=== PATIENT | male | born 1955 | race Caucasian/White ===

== ENCOUNTER 2017-11-23 03:03 | Inpatient (IN) | payer MEDICARE ==
[~2017-11-23] VITALS: Ht 177.8 cm; Wt 92.5 kg
[2017-11-23 03:12] VITALS: BP 107/65
--- NOTE | 2017-11-23 03:12 | NUR ---
GPS/RN NOTES: ADMITTED A 62-Y/O MALE FROM [facility], PATIENT CAME IN THE UNIT VIA GURNEY ACCOMPANIED BY 2 EMT'S. PATIENT ADMITTED ON 5150 HOLD FOR DTS. PER HOLD PATIENT IS NOTED TO BE LABILE, SAD, HIGHLY ANXIOUS, IRRITABLE, GRIMACING STATED HE HAS THOUGHTS OF KILLING HIMSELF. UPON FACE TO FACE ASSESSMENT PATIENT IS ALERT, ORIENTED X3, HYPERVERBAL, DISORGANIZED THOUGHTS, PATIENT DID NOT VERBALIZE SI/HI, DENIES VISUAL/AUDITORY HALLUCINATIONS AT THIS TIME. PATIENT RIGHTS WAS EXPLAINED TO HIM AND PATIENT RIGHT BOOKLET WAS GIVEN TO HIM. PATIENT WAS ORIENTED IN THE UNIT AND UNIT POLICIES. BELONGINGS WERE INVENTORIED AND CHECKED FOR CONTRABAND, SKIN ASSESSMENT DONE. PATIENT IS UNDER THE PSYCHIATRIC CARE OF DR. MARIE, ORDERS OBTAINED, AND UNDER THE MEDICAL CARE OF DR. GRAY, CALLED [facility] SPOKE TO DR. MATA AND NOTIFIED TO RECONCILE MEDICATIONS. BED LOCKED AND IN LOW POSITION, PATIENT MADE COMFORTABLE. WILL CONTINUE TO MONITOR [id number] FOR SAFETY AND BEHAVIOR. FAMILY WILL BE NOTIFIED IN AM.
[2017-11-23] MEDS ORDERED: MAGNESIUM HYDROXIDE 30 ML UDC PO PRN (04:00)
[2017-11-23] MEDS ORDERED: MAG HYDROX/AL HYDROX/SIMETH 30 ML UDC PO PRN (04:00)
[2017-11-23] MEDS ORDERED: ACETAMINOPHEN 325 MG TABLET PO PRN (04:00)
[2017-11-23] MEDS ORDERED: LORAZEPAM 0.5 MG TABLET PO PRN (04:00)
[2017-11-23] MEDS ORDERED: TEMAZEPAM 7.5 MG CAPSULE PO PRN (04:00)
[2017-11-23] MEDS ORDERED: RISP1TAB27 PO ×2 (04:05→04:45)
[2017-11-23] MEDS ORDERED: ASPI-1169 PO (04:05)
[2017-11-23] MEDS ORDERED: GLIP5TAB13 PO ×2 (04:05→04:45)
[2017-11-23] MEDS ORDERED: OMEP40CA37 PO ×2 (04:05→04:45)
[2017-11-23] MEDS ORDERED: METH20TA9 PO ×2 (04:05→04:45)
[2017-11-23] MEDS ORDERED: TERA2CAP4 PO ×2 (04:05→04:45)
[2017-11-23] MEDS ORDERED: GABA-534 PO ×2 (04:05→04:45)
[2017-11-23] MEDS ORDERED: ALBU18HF2 IH (04:05)
[2017-11-23] MEDS ORDERED: EMPA10TA PO ×2 (04:05→04:45)
[2017-11-23] MEDS ORDERED: ALLO100T PO ×2 (04:05→04:45)
[2017-11-23] MEDS ORDERED: LITH300T PO (04:05)
[2017-11-23] MEDS ORDERED: DULO60CA45 PO ×2 (04:05→04:45)
[2017-11-23] MEDS ORDERED: HYDR4TAB57 PO ×2 (04:05→04:45)
[2017-11-23] MEDS ORDERED: LISI40TA4 PO ×2 (04:05→04:45)
[2017-11-23] MEDS ORDERED: PRAV40TA3 PO ×2 (04:05→04:45)
[2017-11-23] MEDS ORDERED: MIRT45TA6 PO (04:05)
[2017-11-23] MEDS ORDERED: MULT-1119 PO (04:45)
[2017-11-23] MEDS ORDERED: LITH300T3 PO (04:45)
[2017-11-23] MEDS ORDERED: MIRT45TA5 PO (04:45)
[2017-11-23] MEDS ORDERED: ASPI-1152 PO (04:45)
[2017-11-23] MEDS ORDERED: BIOT5000 PO (04:45)
--- NOTE | 2017-11-23 06:00 | NUR ---
GPS RN NOTES: CALLED PATIENT'S MITALI POWELL, UNABLE TO REACH THE NUMBER [phone] DUE TO LONG DISTANCE CALL FROM [facility]. PHONE NUMBER WAS PROVIDED/GIVEN BY PATIENT. WILL ENDORSE TO THE NEXT SHIFT ACCORDINGLY TO MAKE A FOLLOW-UP CALL.
[2017-11-23] MEDS ORDERED: DEXTROSE 50%-WATER 50 ML DISP.SYRIN IV PRN (07:00)
[2017-11-23] MEDS: BLOOD SUGAR DIAGNOSTIC 1 EACH STRIP IN SCH ×4 (07:30→21:25)
[2017-11-23 08:01] VITALS: BP 169/90
--- NOTE | 2017-11-23 11:03 | NUR ---
GPS/RN PT REFUSED TO TAKE TYLENOL OFFERED FOR PAIN.
[2017-11-23] MEDS: LISINOPRIL (20MG) 20 MG TABLET PO SCH (12:28)
[2017-11-23] MEDS: risperiDONE 1 MG TABLET PO SCH ×2 (12:28→16:49)
[2017-11-23] MEDS: HYDROMORPHONE HCL 2 MG TABLET PO SCH ×3 (12:28→20:33)
--- NOTE | 2017-11-23 12:44 | NUR ---
GPS/RN PT REFUSED INSULIN COVERAGE OFFERED X3
[2017-11-23] MEDS ORDERED: ALBUTEROL FS 2.5 MG/0.5 ML VIAL.NEB NEB PRN (13:30)
[2017-11-23 16:41] VITALS: BP 141/80
[2017-11-23] MEDS: INSULIN REGULAR, HUMAN 100 UNIT/ML 3 ML VIAL SQ PRN ×3 (17:11→23:03)
[2017-11-23 19:49] VITALS: BP 128/90
[2017-11-23] MEDS: LITHIUM CARBONATE (300 MG CAP) 300 MG CAPSULE PO SCH (20:32)
[2017-11-23] MEDS: MIRTAZAPINE 15 MG TABLET PO SCH (21:07)
[2017-11-23] MEDS: TERAZOSIN HCL 1 MG CAPSULE PO SCH (21:07)
--- NOTE | 2017-11-23 23:04 | NUR ---
RN GPS NOTES AT 2200 PT. BS SUGAR WAS 157 / 2 UNITS OF REGULAR INSULLIN GIVEN , BY MISTAKEN TYPING 157 UNITS BUT GIVEN ONLY 2 UNITS , COSIGNS WITH CHARGE NURSE .
[2017-11-24 07:27] LABS: BASOPHILS % (AUTO) 0.1 % (0.0-2.0); EOSINOPHILS # (AUTO) 0.2 /CMM (0.0-0.7); EOSINOPHILS % (AUTO) 1.8 % (0.0-6.0); HEMATOCRIT 44 % (39-51); LYMPHOCYTES # (AUTO) 2.6 /CMM (0.8-4.8); LYMPHOCYTES % (AUTO) 19.9 % (20.0-44.0); MEAN CORPUSCULAR HEMOGLOBIN 31 PG (26.0-33.0); MEAN CORPUSCULAR HGB CONC 34 g/dl (31.0-36.0); MEAN CORPUSCULAR VOLUME 90 fL (80-96); MONOCYTES # (AUTO) 0.7 /CMM (0.1-1.30); MONOCYTES % (AUTO) 5.2 % (2.0-12.0); NEUTROPHILS # (AUTO) 9.4 /CMM (1.8-8.9); PLATELET COUNT (AUTO) 262 /CMM (150-450); RDW COEFFICIENT OF VARIATION 13.3 (11.5-15.0); RED BLOOD CELL COUNT(AUTO) 4.91 MIL/uL (4.5-6.0); WHITE BLOOD COUNT (AUTO) 12.9 K/uL (4.3-11.0)
[2017-11-24 08:00] VITALS: BP 113/73
--- NOTE | 2017-11-24 08:00 | NUR ---
GPS/RN BS 181, 3 UNITS REGULAR INSULIN ADMINISTERED, WILL CONTINUE TO MONITOR.
[2017-11-24] MEDS: INSULIN REGULAR, HUMAN 100 UNIT/ML 3 ML VIAL SQ PRN ×3 (08:12→21:26)
[2017-11-24 08:15] LABS: ALBUMIN 3.7 g/dL (3.4-5.0); BILIRUBIN,TOTAL 0.5 mg/dL (0.2-1.0); POTASSIUM 4.3 mmol/L (3.5-5.1); TOTAL PROTEIN, SERUM 8.2 g/dL (6.4-8.2)
[2017-11-24] MEDS: LITHIUM CARBONATE (300 MG CAP) 300 MG CAPSULE PO SCH ×2 (08:17→21:16)
[2017-11-24] MEDS: PANTOPRAZOLE 40 MG TABLET.DR PO SCH (08:17)
[2017-11-24] MEDS: risperiDONE 1 MG TABLET PO SCH ×2 (08:17→16:44)
[2017-11-24 08:18] LABS: CHOLESTEROL 159 mg/dL (<200); HDL CHOLESTEROL 49 mg/dL (40-60); LDL 94 mg/dL (0-99); TRIGLYCERIDES 152 mg/dL (30-150)
[2017-11-24] MEDS: HYDROMORPHONE HCL 2 MG TABLET PO SCH ×4 (08:19→21:16)
[2017-11-24] MEDS: glipiZIDE 5 MG TABLET PO SCH (08:23)
[2017-11-24] MEDS: ALLOPURINOL 100 MG TABLET PO SCH (08:23)
[2017-11-24] MEDS: MULTIVITAMINS,THERAGRAN 1 UDTAB TABLET PO SCH (08:23)
[2017-11-24] MEDS: BLOOD SUGAR DIAGNOSTIC 1 EACH STRIP IN SCH ×4 (08:24→21:23)
[2017-11-24] MEDS: ASPIRIN 81 MG TAB.CHEW PO SCH (08:24)
[2017-11-24] MEDS: ATORVASTATIN 10 MG TABLET PO SCH (08:24)
[2017-11-24] MEDS: GABAPENTIN 300 MG CAPSULE PO SCH ×3 (08:24→16:44)
[2017-11-24] MEDS: LISINOPRIL (20MG) 20 MG TABLET PO SCH (08:27)
--- NOTE | 2017-11-24 12:30 | NUR ---
GPS/RN BS 217, 4 UNITS REGULAR INSULIN ADMINISTERED, WILL CONTINUE TO MONITOR.
[2017-11-24 16:00] VITALS: BP 111/76
--- NOTE | 2017-11-24 19:30 | NUR ---
GPS RN NOTE, RECEIVED PATIENT AWAKE AND IN BED, PATIENT HAS A COMPLAINT OF BILATERAL FOOT PAIN. PATIENT IS DISPLAYING NO S/S OF APPARENT DISTRESS AT THIS TIME. PATIENT BREATHING IS UNLABORED WITH EQUAL RISE AND FALL OF THE CHEST. PATIENT IS ALERT AND ORIENTED X 3 ON ROOM AIR WITH A SPO2 OF 96%. PATIENT IS MED COMPLAINT, DISORGANIZED, ANXIOUS AT TIMES, PARANOID, AND NEEDS REORIENTATION. PATIENT DENIES SUICIDE IDEATIONS AND HOMICIDAL IDEATIONS AT THIS TIME. PATIENT ASSISTED WITH TURNING AND REPOSITIONING Q2HR AND PRN FOR COMFORT AND CIRCULATION. PATIENT HAS NO NEEDS AT THIS TIME. PATIENT EDUCATED ON THE USE OF THE CALL AYERS. PATIENT SIDE RAILS ARE UP X 2, BED IS LOCKED AND LOW, AND I WILL CONTINUE TO MONITOR THIS PATIENT Q 15 MIN WITH THE HELP OF STAFF. Addendum: 11/24/17 at 1999 by LEANDRA TAYLOR RN PATIENT HAS A COMPLAINT OF BILATERAL FOOT PAIN AT 6 OUT 10 ON THE PAIN SCALE. PATIENT IS TAKING ORAL PAIN MEDICATION FOR THIS PAIN AT THIS TIME.
[2017-11-24 19:46] VITALS: BP 131/82
[2017-11-24] MEDS: MIRTAZAPINE 15 MG TABLET PO SCH (21:16)
--- NOTE | 2017-11-24 21:16 | NUR ---
GPS RN NOTE, PATIENT HAS A COMPLAINT OF LOWER BACK AND GENERALIZED PAIN AT 8 OUT 10 ON THE PAIN SCALE. PATIENT VITAL SIGNS ARE STABLE. GAVE DILAUDID 4MG PO QID ORDERED. WILL REASSESS PAIN AND I WILL CONTINUE TO MONITOR THIS PATIENT.
[2017-11-24] MEDS: TERAZOSIN HCL 1 MG CAPSULE PO SCH (21:17)
--- NOTE | 2017-11-24 21:23 | NUR ---
GPS RN NOTE, PERFORMED ACCU CHECK ON PATIENT WITH A BLOOD SUGAR RESULT OF 187. GAVE 3 UNITS OF REGULAR INSULIN PER SLIDING SCALE. WILL CONTINUE TO MONITOR THIS PATIENT.
--- NOTE | 2017-11-24 23:21 | NUR ---
GPS RN NOTE, PATIENT HAS A COMPLAINT GENERALIZED BACK PAIN FROM PAST NECK AND BACK SURGERIES. PATIENT STATES HE IS IN 7 OUT 10 PAIN AND WANT'S BETTER PAIN COVERAGE. PAGED [facility] AND INFORMED DR GOLDIE MATA OF MY FINDINGS. DR GOLDIE MATA ORDERED HYDROMORPHONE HCL 4 MG PO Q6HR PRN AND OXYCODONE HCL SR 10 MG 1 TAB PO Q12HR SCHEDULED. ALL ORDERS NOTED AND CARRIED OUT WILL CONTINUE TO MONITOR THIS PATIENT.
[2017-11-25] MEDS: HYDROMORPHONE HCL 2 MG TABLET PO PRN ×2 (05:26→13:10)
--- NOTE | 2017-11-25 05:26 | NUR ---
GPS RN NOTE, PATIENT HAS A COMPLAINT OF LOWER BACK AND GENERALIZED PAIN AT 8 OUT 10 ON THE PAIN SCALE. PATIENT VITAL SIGNS ARE STABLE. GAVE DILAUDID 4MG PO Q6HR PRN ORDERED. WILL REASSESS PAIN AND I WILL CONTINUE TO MONITOR THIS PATIENT.
[2017-11-25 08:00] VITALS: BP 110/70
--- NOTE | 2017-11-25 08:00 | NUR ---
GPS/RN BS 187, 3 UNITS REGULAR INSULIN ADMINISTERED, WILL CONTINUE TO MONITOR.
[2017-11-25] MEDS: PANTOPRAZOLE 40 MG TABLET.DR PO SCH (08:18)
[2017-11-25] MEDS: MULTIVITAMINS,THERAGRAN 1 UDTAB TABLET PO SCH (08:18)
[2017-11-25] MEDS: ASPIRIN 81 MG TAB.CHEW PO SCH (08:18)
[2017-11-25] MEDS: LITHIUM CARBONATE (300 MG CAP) 300 MG CAPSULE PO SCH ×2 (08:18→21:40)
[2017-11-25] MEDS: GABAPENTIN 300 MG CAPSULE PO SCH ×4 (08:18→17:28)
--- NOTE | 2017-11-25 08:18 | NUR ---
WOUND CARE CONSULT WOUND CARE RECEIVED WOUND CONSULT FOR LEFT PLANTAR WOUND. WOUND CARE WILL DEFER CONSULT AND TREATMENT PLANS TO PODIATRY DR GARCIA AT THIS TIME. PATIENT WITH ALLYSSA AT 18, ALL PRESSURE ULCER PREVENTION MEASURES NOTED TO BE IN PLACE.
[2017-11-25] MEDS: glipiZIDE 5 MG TABLET PO SCH (08:19)
[2017-11-25] MEDS: risperiDONE 1 MG TABLET PO SCH ×2 (08:19→17:28)
[2017-11-25] MEDS: ALLOPURINOL 100 MG TABLET PO SCH (08:19)
[2017-11-25] MEDS: LISINOPRIL (20MG) 20 MG TABLET PO SCH (08:19)
[2017-11-25] MEDS: oxyCODONE HCL SR 10MG TAB.SR.12H PO SCH ×2 (08:22→21:40)
[2017-11-25] MEDS: INSULIN REGULAR, HUMAN 100 UNIT/ML 3 ML VIAL SQ PRN ×3 (08:28→21:50)
[2017-11-25] MEDS: BLOOD SUGAR DIAGNOSTIC 1 EACH STRIP IN SCH ×4 (09:25→21:43)
[2017-11-25] MEDS: ATORVASTATIN 10 MG TABLET PO SCH (09:26)
--- NOTE | 2017-11-25 13:10 | NUR ---
GPS/RN PATIENT REPORTS 8/10 GENERALIZED PAIN, REQUESTED PAIN MEDICATION, ADMINISTERED DILAUDID 4MG, WILL CONTINUE TO MONITOR.
[2017-11-25 16:00] VITALS: BP 103/71
--- NOTE | 2017-11-25 17:50 | NUR ---
GPS/RN BS 159, 2 UNITS REGULAR INSULIN ADMINISTERED, WILL CONTINUE TO MONITOR.
[2017-11-25 20:20] VITALS: BP 109/67
[2017-11-25] MEDS: MIRTAZAPINE 15 MG TABLET PO SCH (21:40)
[2017-11-25] MEDS: TERAZOSIN HCL 1 MG CAPSULE PO SCH (21:43)
[2017-11-26] MEDS: HYDROMORPHONE HCL 2 MG TABLET PO PRN ×2 (07:21→14:05)
[2017-11-26] MEDS: BLOOD SUGAR DIAGNOSTIC 1 EACH STRIP IN SCH ×4 (08:02→21:57)
[2017-11-26] MEDS: INSULIN REGULAR, HUMAN 100 UNIT/ML 3 ML VIAL SQ PRN ×4 (08:03→21:49)
[2017-11-26] MEDS: ATORVASTATIN 10 MG TABLET PO SCH (08:10)
[2017-11-26] MEDS: ALLOPURINOL 100 MG TABLET PO SCH (08:10)
[2017-11-26] MEDS: ASPIRIN 81 MG TAB.CHEW PO SCH (08:10)
[2017-11-26] MEDS: GABAPENTIN 300 MG CAPSULE PO SCH ×5 (08:10→17:22)
[2017-11-26] MEDS: oxyCODONE HCL SR 10MG TAB.SR.12H PO SCH ×2 (08:14→21:08)
[2017-11-26] MEDS: MULTIVITAMINS,THERAGRAN 1 UDTAB TABLET PO SCH (08:14)
[2017-11-26] MEDS: LISINOPRIL (20MG) 20 MG TABLET PO SCH (08:15)
[2017-11-26] MEDS: risperiDONE 1 MG TABLET PO SCH ×2 (08:15→17:22)
[2017-11-26] MEDS: glipiZIDE 5 MG TABLET PO SCH (08:15)
[2017-11-26] MEDS: LITHIUM CARBONATE (300 MG CAP) 300 MG CAPSULE PO SCH ×2 (08:15→21:08)
[2017-11-26 08:16] VITALS: BP 127/78
[2017-11-26] MEDS: PANTOPRAZOLE 40 MG TABLET.DR PO SCH (08:16)
[2017-11-26] MEDS: POVIDONE-IODINE OINT 28.4 GM TUBE TP SCH (09:00)
--- NOTE | 2017-11-26 13:45 | NUR ---
Initial Discharge Plan: Patient is currently at a winter [facility]. TARSHA verified this with Eriberto, the director,[phone] (office) [phone] (cell). Eriberto stated that patient has a bed until the first of December. After that, patient is able to go to another intermediate until January. Eriberto stated that he will also provided resources for patient, as will SW. TARSHA spoke with patient who stated that he wanted to go back tot he intermediate. Patient was not interested in SNF placement. Patient's support system is his , but she resides in [facility]. She and patient speak daily. SW to follow up with MD and facilitate safe and proper discharge.
[2017-11-26 16:00] VITALS: BP 104/68
[2017-11-26 20:11] VITALS: BP 101/52
[2017-11-26 20:12] VITALS: BP 101/60
[2017-11-26] MEDS: TERAZOSIN HCL 1 MG CAPSULE PO SCH (21:29)
[2017-11-26] MEDS: MIRTAZAPINE 15 MG TABLET PO SCH (21:31)
[2017-11-27] MEDS: HYDROMORPHONE HCL 2 MG TABLET PO PRN ×3 (07:08→20:03)
[2017-11-27 08:00] VITALS: BP 126/73
--- NOTE | 2017-11-27 08:00 | NUR ---
GPS/RN BS 151, ADMINISTERED 2 UNITS REGULAR INSULIN PER SLIDING SCALE, WILL CONTINUE TO MONITOR.
[2017-11-27] MEDS: ASPIRIN 81 MG TAB.CHEW PO SCH (08:23)
[2017-11-27] MEDS: ATORVASTATIN 10 MG TABLET PO SCH (08:23)
[2017-11-27] MEDS: glipiZIDE 5 MG TABLET PO SCH (08:23)
[2017-11-27] MEDS: risperiDONE 1 MG TABLET PO SCH ×2 (08:23→16:46)
[2017-11-27] MEDS: LISINOPRIL (20MG) 20 MG TABLET PO SCH (08:23)
[2017-11-27] MEDS: GABAPENTIN 300 MG CAPSULE PO SCH ×4 (08:23→16:47)
[2017-11-27] MEDS: PANTOPRAZOLE 40 MG TABLET.DR PO SCH (08:23)
[2017-11-27] MEDS: ALLOPURINOL 100 MG TABLET PO SCH (08:23)
[2017-11-27] MEDS: oxyCODONE HCL SR 10MG TAB.SR.12H PO SCH ×2 (08:24→21:22)
[2017-11-27] MEDS: MULTIVITAMINS,THERAGRAN 1 UDTAB TABLET PO SCH (08:24)
[2017-11-27] MEDS: LITHIUM CARBONATE (300 MG CAP) 300 MG CAPSULE PO SCH ×2 (08:24→21:21)
[2017-11-27] MEDS: BLOOD SUGAR DIAGNOSTIC 1 EACH STRIP IN SCH ×4 (08:25→21:22)
[2017-11-27] MEDS: INSULIN REGULAR, HUMAN 100 UNIT/ML 3 ML VIAL SQ PRN ×3 (08:32→21:23)
--- NOTE | 2017-11-27 10:04 | NUR ---
Discharge Planning: SW spoke with patient again regarding his discharge. Patient stated that he wants to return to the winter retirement. Patient was concerned about his belongings [a blue backpack and a red knapsack] that he lost. Patient wondered if the belongings were at [facility], where patient was before being transferred to [facility]. SW called [facility] , and spoke with family independence case manager Adeline. Adeline stated that patient did not come to the [facility] with those belonging. TARSHA informed patient.
--- NOTE | 2017-11-27 10:28 | NUR ---
RN-CO: ATTENDED A PROBABLE CAUSE HEARING AND UNDERGROUND ELECTRICIAN DECIDED THERE IS NO PROBABLE CAUSE TO BELIEVE A RESULT OF A MENTAL HEALTH DISORDER THAT HE IS A DANGER TO HIMSELF.NOTIFIED DR MARIE, BUT A PATIENT SIGNED VOLUNTARY AND AGREED TO STAY UNTIL TOMM.
--- NOTE | 2017-11-27 12:00 | NUR ---
GPS/RN BS 113, NO COVERAGE NEEDED, WILL CONTINUE TO MONITOR.
[2017-11-27] MEDS: POVIDONE-IODINE OINT 28.4 GM TUBE TP SCH (12:04)
[2017-11-27 16:00] VITALS: BP 116/80
--- NOTE | 2017-11-27 17:30 | NUR ---
GPS/RN BS 196 ADMINISTERED 3 UNITS REGULAR INSULIN PER SLIDING SCALE, WILL CONTINUE TO MONITOR.
[2017-11-27 20:00] VITALS: BP 113/69
[2017-11-27] MEDS: MIRTAZAPINE 15 MG TABLET PO SCH (21:21)
[2017-11-27] MEDS: TERAZOSIN HCL 1 MG CAPSULE PO SCH (21:22)
[2017-11-28] MEDS: HYDROMORPHONE HCL 2 MG TABLET PO PRN (03:56)
[2017-11-28] MEDS: BLOOD SUGAR DIAGNOSTIC 1 EACH STRIP IN SCH (07:35)
[2017-11-28] MEDS: PANTOPRAZOLE 40 MG TABLET.DR PO SCH (07:38)
[2017-11-28 08:12] VITALS: BP 109/76
[2017-11-28] MEDS: INSULIN REGULAR, HUMAN 100 UNIT/ML 3 ML VIAL SQ PRN (08:12)
[2017-11-28 09:00] VITALS: BP 109/70
[2017-11-28] MEDS: GABAPENTIN 300 MG CAPSULE PO SCH ×2 (09:00→09:59)
[2017-11-28] MEDS: LISINOPRIL (20MG) 20 MG TABLET PO SCH (09:00)
[2017-11-28] MEDS: MULTIVITAMINS,THERAGRAN 1 UDTAB TABLET PO SCH (09:00)
[2017-11-28] MEDS: ATORVASTATIN 10 MG TABLET PO SCH (09:00)
[2017-11-28] MEDS: glipiZIDE 5 MG TABLET PO SCH (09:00)
[2017-11-28] MEDS: ASPIRIN 81 MG TAB.CHEW PO SCH (09:00)
[2017-11-28] MEDS: LITHIUM CARBONATE (300 MG CAP) 300 MG CAPSULE PO SCH (09:01)
[2017-11-28] MEDS: POVIDONE-IODINE OINT 28.4 GM TUBE TP SCH (09:01)
[2017-11-28] MEDS: ALLOPURINOL 100 MG TABLET PO SCH (09:01)
[2017-11-28] MEDS: oxyCODONE HCL SR 10MG TAB.SR.12H PO SCH (09:01)
[2017-11-28] MEDS: risperiDONE 1 MG TABLET PO SCH (09:01)
--- NOTE | 2017-11-28 09:35 | NUR ---
Discharge Note: Patient will be discharged to his [facility], located [id number] [place] [address] via access transportation. With patients permission, SW used patients access card to arrange a ride through their services. Patient will be picked up by access transportation at 11:30am today. The ride will then take him to [facility], where a second vacuum truck driver will pick patient up at 1pm to take him to the [facility] in [place]. Patient is aware of this and states that he has utilized the same services many times. Patient is comfortable doing so. Patients trip confirmation number is #[id number]. TARSHA confirmed patient discharged with the director of the [facility], Eriberto [phone]. Eriberto stated that patients bed is available to him. Upon discharge, patient is calm and cooperative. Patient denies suicidal and homicidal ideation. Please note that patient has been on voluntary stay since being released by the PC Hearing on 11/27/17. Patient will follow up with his psychiatrist, Dr. Montoya [facility] [address] [address] / [phone], on December 18 at 9am. Patient will also follow up with his packaging inspector, Dr. Lott [address] [place] [address] on December 18 at 11:30am. Patient also has an appointment with Dr. Gonzalez from [facility] on [address] [place] [place] [id number] on December 25 at 8:45am. Patient was provided referrals for smoking cessation group: [facility] / [phone], [employer] [facility] [employer] / [phone], and [facility] Outpatient services [address], [address].
--- NOTE | 2017-11-28 11:08 | NUR ---
GPS/RN ORDERS FROM DR GRION RECEIVED: IT IS OK TO D/C DISCHARGE PT TO [facility] [address] [facility] [address] VIA ACCESS TRANSPORTATION. NO SI OR HI REPROTED AT THE TIME OF D/C. PSYCH PRESCRIPTION PROVIDED. PT DECLINE THE PRESCRIPTION FOR MEDICAL MEDS HE HAS ALL MEDS AND PRESCRIPTIONS ON HIM. PROPERTY, PT'S OWN MEDICATION RETURNED AND SIGNED FOR. Addendum: 11/28/17 at 1115 by JARVIS HAINES RN [employer] [facility] PROVIDED FOR ACCESS TRANSPORTATION BY THE [facility]
--- NOTE | 2017-11-28 11:30 | NUR ---
DISCHARGE NOTE: PATIENT LEFT THE UNIT AT 1130. PATIENT RECEIVED DISCHARGE ORDER AND MED RECON FROM DR. GIRON. DR. HDZ MADE AWARE OF DISCHARGE AND ALSO RECONCILED MEDS. PATIENT MEDICALLY STABLE DURING DISCHARGE. V/S STABLE. PATIENT DENIES SI/HI AT THE MOMENT OF DISCHARGE. PATIENT SIGNED ALL PERTINENT PAPERS. PATIENT LEFT WITH ALL BELONGINGS. EXIT CARE PAPERS EXPLAINED AND GIVEN TO PATIENT AT DISCHARGE. SKIN ASSESSMENT AND PICTURES DONE.
== END 2017-11-28 11:30 | disposition home or self-care (01) | DRG 876 ==
LOC: GPS 03:03
PROVIDERS: ADMIT Psychiatry & Neurology Psychiatry; ATTEND Psychiatry & Neurology Psychiatry
PROC: 0JBR0ZZ Excision of Left Foot Subcutaneous Tissue and Fascia, Open Approach (ICD-10-PCS; principal; 2017-11-24)
DX: F29 Unspecified psychosis not due to a substance or known physiological condition (principal); E11.42 Type 2 diabetes mellitus with diabetic polyneuropathy; E11.621 Type 2 diabetes mellitus with foot ulcer; R45.851 Suicidal ideations; E78.5 Hyperlipidemia, unspecified; F41.9 Anxiety disorder, unspecified; F17.210 Nicotine dependence, cigarettes, uncomplicated; F31.9 Bipolar disorder, unspecified; J44.9 Chronic obstructive pulmonary disease, unspecified; I10 Essential (primary) hypertension; E11.622 Type 2 diabetes mellitus with other skin ulcer; G89.4 Chronic pain syndrome; L97.529 Non-pressure chronic ulcer of other part of left foot with unspecified severity; N40.0 Benign prostatic hyperplasia without lower urinary tract symptoms; Z73.6 Limitation of activities due to disability; F17.200 Nicotine dependence, unspecified, uncomplicated; L84 Corns and callosities; Z59.0 Homelessness; Z79.899 Other long term (current) drug therapy; D72.829 Elevated white blood cell count, unspecified
CPT/HCPCS: 36415; 80053-TC; 80061-TC; 82962-TC; 85025-TC; 87081-TC; A6402; J1815